=== PATIENT | male | born 1965 | race Caucasian/White ===

== ENCOUNTER 2017-01-28 07:16 | Emergency (ER) | payer BC ==
[~2017-01-28 07:16] MED LIST: A/B OTIC AS; AMOXICILLIN PO; AMOXICILLIN500 M1; AMOXICILLIN500 M1 PO; BACTRIM DS PO; BACTRIM DS TABL1 TA1 PO; BENADRYL PO; CEPHALEXIN PO; CLARITIN5 MG PO; CORTISPORI10 ML OTIC OT; DICLOFENAC PO; KEFLEX500 M2 PO; LORTAB 7.5-5001 TAB PO; MAGIC MOUTHWASH PO; MEDROL DOSEPAK4 MG PO; METFORMIN HCL500 M2 PO; NO MEDICATIONS; PERCOCET 5-3251 TAB PO; PHENERGAN DM1 ML PO; PREDNISONE PO; PREVACID PO; ROBITUSSIN A-C-S1 ML PO; TRAMADOL HCL50 M1 PO; VOLTAREN PO; VOLTAREN75 MG PO; ZITHROMAX PO; ZOFRAN ODT4 MG PO
[2017-01-28] MEDS ORDERED: BACTRIM DS TAB1 EACH (07:20)
[2017-01-28] MEDS ORDERED: NSAID (07:21)
[2017-01-28] MEDS ORDERED: CHOLESTEROL MED (07:21)
[2017-01-28] MEDS ORDERED: FLEXERIL10 MG PO (07:21)
== END 2017-01-28 08:35 | disposition home or self-care (01) ==
LOC: SED 07:16
DX: L03.319 Cellulitis of trunk, unspecified (principal); E11.9 Type 2 diabetes mellitus without complications; E78.5 Hyperlipidemia, unspecified; F17.200 Nicotine dependence, unspecified, uncomplicated; Z79.84 Long term (current) use of oral hypoglycemic drugs; Z79.899 Other long term (current) drug therapy
CPT/HCPCS: 82947; 96372; 99283